=== PATIENT | female | born 1965 | race Caucasian/White ===

== ENCOUNTER 2016-08-24 00:51 | Emergency (ER) | payer MEDICAID ==
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
[2016-08-24] MEDS ORDERED: TDAP ADULT 0.5 ML INJ (BOOSTRIX) IM ONE (01:46)
[2016-08-24] MEDS ORDERED: ERTAPENEM 1 GM in NS 100 ML IV ONE (01:46)
[2016-08-24 01:54] LABS: % IMMATURE GRANULYOCYTES 0.3 % (0.0-1.1); ABSOLUTE IMMATURE GRANULOCYTES 0.03 10^3/uL (0.00-0.10); ADD DIFF? NO; ADD MORPH? NO; ADD SCAN? NO; ATYPICAL LYMPHOCYTE FLAG 10 (0-99); FRAGMENT RBC FLAG 0 (0-99); HEMATOCRIT 45.6 % (38.0-47.0); HEMOGLOBIN 16.1 g/dL (12.6-16.3); LEFT SHIFT FLG 0 (0-99); LIPEMIA HEMOLYSIS FLAG 90 (0-99); MEAN CELL HEMOGLOBIN 31.5 pg (27.9-34.1); MEAN CELL HEMOGLOBIN CONCENTR. 35.3 g/dL (32.4-36.7); MEAN CELL VOLUME 89.2 fL (81.5-99.8); MEAN PLATELET VOLUME 9.3 fL (8.7-11.7); PLATELET CLUMPS FLAG 0 (0-99); PLATELET COUNT 360 10^3/uL (150-400); RED BLOOD CELL COUNT 5.11 10^6/uL (4.18-5.33)
[2016-08-24 02:08] LABS: CREATININE 1.1 mg/dL (0.6-1.0); POTASSIUM 3.8 mEq/L (3.5-5.2)
[2016-08-24 02:58] VITALS: BP 119/81; PULSE 92; RESP 16; TEMP 97.9; O2SAT 97
== END 2016-08-24 03:01 | disposition home or self-care (01) ==
LOC: CED 00:51
PROC: 0H9MXZZ Drainage of Right Foot Skin, External Approach (ICD-10-PCS; principal; 2016-08-24)
PROC: 3E0234Z Introduction of Serum, Toxoid and Vaccine into Muscle, Percutaneous Approach (ICD-10-PCS; principal; 2016-08-24)
DX: L03.115 Cellulitis of right lower limb (principal); Z23 Encounter for immunization
CPT/HCPCS: 80048-PO; 83605-PO; 85025-PO; 96365; J1335

== ENCOUNTER 2016-08-25 16:43 | Emergency (ER) | payer MEDICAID ==
--- NOTE | 2016-08-25 16:49 | EDPHY ---
H & P Time Seen by Provider: 08/25/16 16:47 HPI/ROS: CHIEF COMPLAINT: Recheck right foot cellulitis HISTORY OF PRESENT ILLNESS: Patient was seen in the emergency department yesterday at 1:00 a.m. with redness and swelling on the lateral aspect of the right foot being diagnosed with cellulitis. Dr. Eastman the treating physician's note was reviewed by myself. He did an attempted aspiration and did not find abscess. She had her tetanus updated and she was given 1 g of IV Invanz. Her white blood cell count was 10.4 and had a normal lactic acid. Apparently she was unable to follow up at [facility] and presents here for evaluation. Today she says the foot is feeling better. Redness is less and pain is decreased. REVIEW OF SYSTEMS: No fever or chills. No redness on the leg. She feels it is better. Redness has receded from the previously marked line on her santillan. Not short of breath. PAST MEDICAL HISTORY: Includes multiple right foot surgeries, head injury, chronic back pain. Asthma. Negative for diabetes. Social history: Tobacco smoker. General Appearance: Alert and conversant, cooperative. Normal motor and sensory in the foot. Normal dorsalis pedis pulse. There is a 2 x 3 cm area of redness over the lateral foot in the area at the base of the 5th toe. There is a 1 cm blister which is draining over her callus laterally. No lymphangitis. No fluctuance or crepitus. No eschar and compartments are soft. Emergency Department course/MDM: Patient is already markedly improved. She will be placed on Bactrim and Keflex and given primary care referral. I think it is unlikely she has DVT, abscess or fasciitis, other deep space infection. I think osteomyelitis would be unlikely with only 4 days of symptoms. Primary care follow-up or with her sales representative door to door. Smoking Status: Current every day smoker Constitutional: Initial Vital Signs Temperature (C) 36.6 C 08/25/16 16:54 Heart Rate 85 08/25/16 16:54 Respiratory Rate 18 08/25/16 16:54 Blood Pressure 135/85 H 08/25/16 16:54 O2 Sat (%) 91 L 08/25/16 16:54 O2 Delivery Mode Room Air Allergies/Adverse Reactions: No Known Allergies Allergy (Unverified 08/24/16 01:17) Home Medications: Medication Instructions Recorded Fosamax 70 MG (*) 08/24/16 Indomethacin, Submicronized 20 mg PO 08/24/16 [Tivorbex] Venlafaxine 37.5MG (*) 08/24/16 morphINE IR [morphINE IR 15 mg (*)] 15 mg PO 08/24/16 Cephalexin [Keflex] 500 mg PO QID #40 cap 08/25/16 Sulfamethox/Tmp 800/160 mg 1 tab PO Q12 #20 tab 08/25/16 [Bactrim Ds] MDM/Departure - MDM Medications Given: Discontinued Medications Cephalexin HCl (Keflex) 500 mg PO EDNOW ONE PRN Reason: Protocol Stop: 08/25/16 16:56 Last Admin: 08/25/16 17:03 Dose: 500 mg Trimethoprim/Sulfamethoxazole (Bactrim Ds) 1 ea PO EDNOW ONE PRN Reason: Protocol Stop: 08/25/16 16:56 Last Admin: 08/25/16 17:03 Dose: 1 ea - Depart Disposition: Home, Routine, Self-Care Clinical Impression: Cellulitis of right foot Condition: Good Instructions: Cellulitis (ED) Prescriptions: Cephalexin [Keflex] 500 mg PO QID #40 cap Sulfamethox/Tmp 800/160 mg [Bactrim Ds] 1 tab PO Q12 #20 tab Referrals: FRANCE OSEI [Medical Doctor] - As per Instructions [facility],. [Clinic] - As per Instructions
[2016-08-25 16:55] VITALS: BP 135/85; PULSE 85; RESP 18; TEMP 98; O2SAT 91
[2016-08-25] MEDS ORDERED: SULFAMETHOX/TMP 800/160 MG 1 TAB PO ONE (16:55)
[2016-08-25] MEDS ORDERED: CEPHALEXIN 500 MG CAP PO ONE (16:55)
== END 2016-08-25 17:17 | disposition home or self-care (01) ==
LOC: CED 16:43
DX: L03.115 Cellulitis of right lower limb (principal); J45.909 Unspecified asthma, uncomplicated; F17.200 Nicotine dependence, unspecified, uncomplicated

== ENCOUNTER 2016-09-16 19:10 | Emergency (ER) | payer MEDICAID ==
[2016-09-16 19:20] VITALS: TEMP 98.1
--- NOTE | 2016-09-16 19:46 | EDPHY ---
H & P Time Seen by Provider: 09/16/16 19:25 HPI/ROS: CHIEF COMPLAINT: Right foot redness HISTORY OF PRESENT ILLNESS: Patient is a 50-year-old female who presents emergency department with redness on the right lateral foot. Patient states she had previously trimmed callus. This caused her to get an infection. Was treated with antibiotics. She stated her symptoms improved. However for the past week it has been increasing in redness. It is mildly tender to touch. She has had no fevers or chills. No other complaints. REVIEW OF SYSTEMS: Negative Past Medical/Surgical History: Closed-head injury, asthma, foot surgery Smoking Status: Current every day smoker Physical Exam: Vitals noted General Appearance: Alert and no distress. Head: Pupils equal. Normal. Respiratory: No respiratory distress. Cardiac: regular rate and rhythm. Extremities: patient has mild redness over the lateral aspect of her right foot. There is no fluctuance. No discharge. There is a callus laterally. No streaking up the foot or leg. Neurovascular intact distally. The patient is missing her 4th toe. Skin: No rashes or lesions. Neuro: Alert. Normal mood and affect. Constitutional: Initial Vital Signs Temperature (C) 36.7 C 09/16/16 19:17 Heart Rate 84 09/16/16 19:17 Respiratory Rate 14 09/16/16 19:17 Blood Pressure 140/50 H 09/16/16 19:17 O2 Sat (%) 97 09/16/16 19:17 O2 Delivery Mode Room Air Allergies/Adverse Reactions: No Known Allergies Allergy (Unverified 09/16/16 19:14) Home Medications: Medication Instructions Recorded Fosamax 70 MG (*) 08/24/16 Indomethacin, Submicronized 20 mg PO 08/24/16 [Tivorbex] Venlafaxine 37.5MG (*) 08/24/16 morphINE IR [morphINE IR 15 mg (*)] 15 mg PO 08/24/16 Cephalexin [Keflex] 500 mg PO QID #40 cap 08/25/16 Sulfamethox/Tmp 800/160 mg 1 tab PO Q12 #20 tab 08/25/16 [Bactrim Ds] Medical Decision Making ED Course/Re-evaluation: In the emergency department I discussed possible etiologies with the patient. I answered all her questions. The patient was placed on Keflex. She was given the 1st Keflex in the emergency department. She was given warnings prior to leaving. She will return with worsening symptoms. Differential Diagnosis: Patient has redness on the lateral right foot. This could represent an early cellulitis. She is treated with antibiotics. I do not palpate fluctuance. I doubt abscess. Do not see a foreign body. There is a callus that this location. I doubt septic joint. She does not appear septic or toxic. Departure - Departure Disposition: Home, Routine, Self-Care Clinical Impression: Cellulitis Qualifiers: Site of cellulitis: extremity Site of cellulitis of extremity: lower extremity Laterality: right Qualified Code(s): L03.115 - Cellulitis of right lower limb Condition: Good Instructions: Cellulitis (ED) Additional Instructions: Take your entire course of antibiotics. Return with increasing redness, fever, pain or any other concerns. Referrals: Aline Miguel MD [Medical Doctor] - 2-3 days, call for appt.
[2016-09-16] MEDS: CEPHALEXIN 500MG PREPACK#4 BTL TAKEHOME ONE (20:01)
[2016-09-16 20:05] VITALS: BP 135/70; PULSE 68; RESP 18; O2SAT 93
== END 2016-09-16 20:08 | disposition home or self-care (01) ==
LOC: CED 19:10
DX: L03.115 Cellulitis of right lower limb (principal); J45.909 Unspecified asthma, uncomplicated; F17.200 Nicotine dependence, unspecified, uncomplicated